=== PATIENT | female | born 1955 | race Caucasian/White ===

== ENCOUNTER → 2016-10-29 | Outpatient (CLI) | payer OTHER ==
[~2016-10-29] MED LIST: ATEN-60 PO; EST0625T PO; ESZO3TAB53 PO; FLUO-125 PO; LEVO75TA6 PO; LOR05T PO; OLA5T PO; SIMV-13 PO
[2016-10-29 09:18] LABS: Basophils # (auto) 0.1 uL; Basophils % (auto) 0.8 % (0.0-2.0); Eosinophils # (auto) 0.2 uL; Eosinophils % (auto) 2.8 % (0.0-7.0); Hematocrit 40.7 % (36.0-46.0); Hemoglobin 12.8 g/dL (12.2-16.2); Lymphocytes # (auto) 2.6 uL; Lymphocytes % (auto) 37.4 % (10.0-50.0); Mean Corpuscular Hemoglobin 27.2 pg (28.0-32.0); Mean Corpuscular Hgb Conc. 31.5 g/dL (32.0-36.0); Mean Corpuscular Volume 86.3 fL (80.0-100.0); Mean Platelet Volume 8.5 fL (7.4-10.4); Monocytes # (auto) 0.5 uL; Monocytes % (auto) 6.8 % (0.0-12.0); Neutrophils # (auto) 3.7 uL; Neutrophils % (auto) 52.2 % (37.0-80.0); Platelet Count (auto) 280 10^3/uL (140-450); Red Cell Distribution Width 14.6 % (11.6-16.0); White Blood Cell 7.1 10^3/uL (4.4-10.8)
[2016-10-29 09:36] LABS: Urine Bilirubin Negative (Negative); Urine Blood Negative /uL (Negative); Urine Color Yellow (Yellow); Urine Glucose Normal (Normal); Urine Ketone Negative (Negative); Urine Nitrite Negative (Negative); Urine RBC 4 /hpf (0 - 4); Urine Squamous Epithelial Cell MANY /hpf (<5); Urine Urobilinogen Normal (Negative); Urine pH 6.5 (5.0-8.0)
[2016-10-29 09:38] LABS: Albumin 3.7 g/dL (3.4-5.0); BUN/Creatinine Ratio 16.5; Bilirubin, Total 0.3 mg/dL (0.2-1.0); Calcium 9.2 mg/dL (8.5-10.1); Potassium 4.4 mmol/L (3.5-5.1); Total Protein 7.9 g/dL (6.4-8.2)
== END | disposition home or self-care (01) ==
LOC: LAB 08:39
PROVIDERS: ATTEND Internal Medicine
DX: E78.00 Pure hypercholesterolemia, unspecified (principal); N18.3 Chronic kidney disease, stage 3 (moderate); E11.9 Type 2 diabetes mellitus without complications; Z00.00 Encounter for general adult medical examination without abnormal findings
CPT/HCPCS: 36415; 80053; 80061; 81001; 83615; 84439; 84443; 84480; 84481; 85025

== ENCOUNTER → 2016-11-06 | Outpatient (CLI) | payer OTHER | END | disposition home or self-care (01) | LOC: LAB 15:27 | PROVIDERS: ATTEND Internal Medicine | DX: E11.40 Type 2 diabetes mellitus with diabetic neuropathy, unspecified (principal); N18.3 Chronic kidney disease, stage 3 (moderate); E78.00 Pure hypercholesterolemia, unspecified | CPT/HCPCS: 82270 ==

== ENCOUNTER → 2017-05-07 | Outpatient (CLI) | payer OTHER | END | disposition home or self-care (01) | LOC: LAB 08:03 | PROVIDERS: ATTEND Internal Medicine | DX: E03.9 Hypothyroidism, unspecified (principal); G45.9 Transient cerebral ischemic attack, unspecified; Z90.710 Acquired absence of both cervix and uterus | CPT/HCPCS: 36415; 83036; 84439; 84443 ==

== ENCOUNTER → 2017-11-27 | Outpatient (CLI) | payer OTHER ==
[~2017-11-27] MED LIST changes: -LOR05T PO; +LORA-654 PO
[2017-11-27 11:16] LABS: Basophils # (auto) 0.2 uL; Basophils % (auto) 2.4 % (0.0-2.0); Eosinophils # (auto) 0.2 uL; Eosinophils % (auto) 2.8 % (0.0-7.0); Hematocrit 40.5 % (36.0-46.0); Hemoglobin 13.6 g/dL (12.2-16.2); Mean Corpuscular Hemoglobin 30.2 pg (28.0-32.0); Mean Corpuscular Hgb Conc. 33.7 g/dL (32.0-36.0); Mean Corpuscular Volume 89.5 fL (80.0-100.0); Monocytes # (auto) 0.4 uL; Monocytes % (auto) 6.1 % (0.0-12.0); Neutrophils # (auto) 2.7 uL; Neutrophils % (auto) 42.7 % (37.0-80.0); Nucleated Red Blood Cells % 0.2 %; Platelet Count (auto) 228 10^3/uL (140-450); Red Blood Cells 4.52 10^6/uL (4.0-5.20); Red Cell Distribution Width 13.7 % (11.8-14.3); White Blood Cell 6.4 10^3/uL (4.4-10.8)
[2017-11-27 11:46] LABS: Albumin 3.7 g/dL (3.4-5.0); Bilirubin, Total 0.4 mg/dL (0.2-1.0); Potassium 4.2 mmol/L (3.5-5.1); Total Protein 7.6 g/dL (6.4-8.2)
[2017-11-27 14:25] LABS: Urine Bacteria MANY /hpf (None Seen); Urine Blood Negative /uL (Negative); Urine Specific Gravity 1.008 (1.001-1.035); Urine WBC 14 /hpf (0 - 5)
== END | disposition home or self-care (01) ==
LOC: LAB 10:59
PROVIDERS: ATTEND Family Medicine
DX: I10 Essential (primary) hypertension (principal); E03.9 Hypothyroidism, unspecified
CPT/HCPCS: 36415; 80053; 80061; 81001; 82306; 84443; 85025

== ENCOUNTER → 2018-05-19 | Outpatient (CLI) | payer OTHER ==
[2018-05-19 08:58] LABS: Urine Blood Negative /uL (Negative); Urine Specific Gravity 1.006 (1.001-1.035)
[2018-05-19 09:30] LABS: Albumin 3.9 g/dL (3.4-5.0); BUN/Creatinine Ratio 13.8; Bilirubin, Total 0.5 mg/dL (0.2-1.0); Potassium 3.7 mmol/L (3.5-5.1); Total Protein 7.7 g/dL (6.4-8.2)
[2018-05-19 11:21] LABS: Folate (Folic Acid) 16.07 ng/mL (5.38-24)
== END | disposition home or self-care (01) ==
LOC: LAB 08:16
PROVIDERS: ATTEND Nurse Practitioner
DX: E11.22 Type 2 diabetes mellitus with diabetic chronic kidney disease (principal); N18.3 Chronic kidney disease, stage 3 (moderate); E78.5 Hyperlipidemia, unspecified
CPT/HCPCS: 36415; 80053; 80061; 81003; 82306; 82607; 82746; 83036; 84443

== ENCOUNTER → 2018-05-22 | Outpatient (CLI) | payer OTHER | END | disposition home or self-care (01) | LOC: XY 09:17 | PROVIDERS: ATTEND Family Medicine | DX: I65.22 Occlusion and stenosis of left carotid artery (principal); E03.9 Hypothyroidism, unspecified; I12.9 Hypertensive chronic kidney disease with stage 1 through stage 4 chronic kidney disease, or unspecified chronic kidney disease; E11.22 Type 2 diabetes mellitus with diabetic chronic kidney disease; N18.3 Chronic kidney disease, stage 3 (moderate); E78.5 Hyperlipidemia, unspecified | CPT/HCPCS: 93886 ==

== ENCOUNTER 2019-07-08 12:21 | Inpatient (IN) | payer OTHER ==
[~2019-07-08] VITALS: Ht 157.5 cm; Wt 68.0 kg
[~2019-07-08 12:21] MED LIST changes: -LORA-654 PO; +LORA0.5T12 PO
[2019-07-08 13:24] LABS: Basophils # (auto) 0.1 uL; Basophils % (auto) 1.5 % (0.0-2.0); Eosinophils # (auto) 0.2 uL; Eosinophils % (auto) 2.6 % (0.0-7.0); Hematocrit 40.1 % (36.0-46.0); Hemoglobin 13.8 g/dL (12.2-16.2); Lymphocytes # (auto) 2.4 uL; Lymphocytes % (auto) 36.4 % (10.0-50.0); Mean Corpuscular Hemoglobin 31.6 pg (28.0-32.0); Mean Corpuscular Hgb Conc. 34.3 g/dL (32.0-36.0); Monocytes # (auto) 0.5 uL; Neutrophils # (auto) 3.4 uL; Neutrophils % (auto) 51.5 % (37.0-80.0); Platelet Count (auto) 213 10^3/uL (140-450); Red Blood Cells 4.36 10^6/uL (4.0-5.20); White Blood Cell 6.6 10^3/uL (4.4-10.8)
[2019-07-08 13:44] LABS: Albumin 3.9 g/dL (3.4-5.0); Anion Gap 8 (5-15); Blood Urea Nitrogen 14 mg/dL (7-18); Carbon Dioxide 27 mmol/L (21-32); Chloride 102 mmol/L (98-107); Glucose 96 mg/dL (74-106); Potassium 4.2 mmol/L (3.5-5.1); Sodium 137 mmol/L (136-145)
[2019-07-08 13:47] LABS: Alanine Aminotransferase 30 U/L (13-56); Aspartate Aminotransferase 23 U/L (15-37); BUN/Creatinine Ratio 16.3; GFR African American 86 mL/min; GFR Non-African American 71 mL/min
[2019-07-08 13:50] LABS: Alkaline Phosphatase 58 U/L (45-117); Bilirubin, Total 0.1 mg/dL (0.2-1.0); Total Protein 7.8 g/dL (6.4-8.2)
[2019-07-08] MEDS ORDERED: ACETAMINOPHEN 325 MG TAB PO PRN (21:00)
[2019-07-08] MEDS ORDERED: ONDANSETRON HCL 4 MG/2 ML VIAL IV PRN (21:00)
[2019-07-08] MEDS ORDERED: NITROGLYCERIN 0.4 MG SL TAB SL PRN (22:00)
[2019-07-08] MEDS ORDERED: MORPHINE SULF INJ 2 MG/ML SYRINGE 1ML IV PRN (22:00)
[2019-07-08] MEDS: FAMOTIDINE 20 MG TAB PO SCH (22:06)
[2019-07-08] MEDS: ATORVASTATIN 20 MG TAB PO SCH (22:06)
[2019-07-08] MEDS: OLANZapine 5 MG TAB PO SCH (22:07)
[2019-07-08 23:00] VITALS: BP 127/72
--- NOTE | 2019-07-08 23:05 | NUR ---
Telemetry admit from [facility] admitted to Telemetry unit after SBAR received. Patient oriented to Christine aquino RN, unit, room, bed, and unit policies regarding patient care and visiting hours. Patient now on continuous telemetry monitoring, tele box #[id number] and telemetry reading on arrival to unit is SINUS RHYTHM. Patient weighed by bed scale and encouraged to call if they need something. All questions and concerns addressed, patient verbalized understanding.
--- NOTE | 2019-07-09 00:02 | NUR ---
PAGED HOSPITALIST RE: PATIENT REQUESTS SLEEPING PILL, NO ORDER AT THIS TIME ALSO, PATIENT HAS NO DIET ORDER WILL WAIT FOR CALL BACK
--- NOTE | 2019-07-09 00:11 | NUR ---
D DIMER SPOKE WITH LAB PERSONNEL MICHAEL RE: STAT D DIMER THAT HAS NOT BEEN DRAWN PER MICHAEL, A SUPPLY SERVICE WORKER IS ON THEIR WAY NOW
[2019-07-09] MEDS ORDERED: TEMAZEPAM 15 MG CAP PO ONE ×2 (01:45→20:45)
--- NOTE | 2019-07-09 01:45 | NUR ---
new orders received from hospitalist Hoda orders read back and verified. dEwar carry out orders
[2019-07-09 03:14] VITALS: BP 127/72
[2019-07-09 05:09] VITALS: BP 138/74
[2019-07-09] MEDS: LEVOTHYROXINE SODIUM 25 MCG TAB PO SCH (06:27)
--- NOTE | 2019-07-09 06:59 | NUR ---
CLOSING PATIENT IS SLEEPING. NO S/S OF DISTRESS NOTED. NO C/O CHEST PAIN THROUGHOUT SHIFT. CALL LIGHT WITHIN REACH. WILL ENDORSE CARE TO AM SHIFT RN.
--- NOTE | 2019-07-09 07:30 | NUR ---
Opening Shift Note Assumed care of patient, awake and alert. No S/S of distress/SOB. PT denies having any pain at this time. Bed in lowest and locked position with side rails up x2 and call light with in reach. Instructed on POC and to call for assist PRN, will continue to monitor for changes Q1hr and PRN.
[2019-07-09 07:46] LABS: Calcium 8.9 mg/dL (8.5-10.1); Potassium 4.3 mmol/L (3.5-5.1)
[2019-07-09 07:48] LABS: BUN/Creatinine Ratio 13.4
[2019-07-09 09:23] VITALS: BP 157/86
[2019-07-09] MEDS: ASPirin 81 mg TAB PO SCH (10:15)
[2019-07-09] MEDS: FAMOTIDINE 20 MG TAB PO SCH ×2 (10:15→21:41)
[2019-07-09] MEDS: FLUoxetine HCL 20 MG CAP PO SCH (10:16)
[2019-07-09] MEDS: ATENOLOL 50 MG TAB PO SCH (10:17)
[2019-07-09 13:00] VITALS: BP 119/77
--- NOTE | 2019-07-09 13:49 | NUR ---
PAGED DR. STEINER REGARDING CARDIOLOGY CONSULT.
--- NOTE | 2019-07-09 13:51 | NUR ---
RECEIVED CALL BACK FROM DR. STEINER. NEW ORDERS RECEIVED, READ BACK AND VERIFIED.
--- NOTE | 2019-07-09 13:56 | NUR ---
SPOKE TO STRESS LAB. ACCORDING TO STRESS TOP STITCHER, THE PT WILL HAVE THE STRESS TEST IN THE AM AND THE PT IS TO BE NPO AFTER MIDNIGHT.
[2019-07-09 17:00] VITALS: BP 127/64
--- NOTE | 2019-07-09 19:00 | NUR ---
Opening Shift Note Assumed care of patient, awake and alert. No S/S of distress/SOB or pain. Instructed on POC and to call for assist PRN, will continue to monitor for changes Q1hr and PRN.
[2019-07-09 21:15] VITALS: BP 129/79
[2019-07-09] MEDS: ATORVASTATIN 20 MG TAB PO SCH (21:41)
[2019-07-09] MEDS: OLANZapine 5 MG TAB PO SCH (21:41)
[2019-07-10 05:43] VITALS: BP 153/97
--- NOTE | 2019-07-10 06:12 | NUR ---
Attempted IV: RN attempted to place another IV d/t patient scheduled to have a stress test today. Patient politely refused and informed RN "we can do that later, not now". RN provided teaching to patient for requirement of IV. Patient verbalized understanding.
[2019-07-10] MEDS: LEVOTHYROXINE SODIUM 25 MCG TAB PO SCH (06:32)
[2019-07-10 06:53] LABS: Cholesterol 154 mg/dL (< 200); Triglycerides 136 mg/dL (< 150)
[2019-07-10 06:55] LABS: HDL Cholesterol 58 mg/dL (40-59); LDL Cholesterol 79 mg/dL (< 100)
--- NOTE | 2019-07-10 07:39 | NUR ---
Opening Shift Note Assumed care of patient, AOx4. No signs/symptoms of distress/SOB or pain. Patient has left FA 20 gauge saline locked peripheral IV. Patient is NPO for stress test. Bed in lowest position wit 2/4 side rails up. Instructed on POC and to call for assist PRN, will continue to monitor for changes Q1hr and PRN.
[2019-07-10] MEDS ORDERED: ADENOSINE 57 MG in GIVE UN-DILUTED 0 ML IV STA (08:17)
--- NOTE | 2019-07-10 08:30 | NUR ---
Patient off unit Patient off unit via wheelchair to stress test. Respirations even and unlabored, no signs or symptoms of distress.
[2019-07-10 09:00] VITALS: BP 125/76
[2019-07-10] MEDS: ASPirin 81 mg TAB PO SCH (10:31)
[2019-07-10] MEDS: FAMOTIDINE 20 MG TAB PO SCH (10:33)
[2019-07-10] MEDS: ATENOLOL 50 MG TAB PO SCH (10:33)
[2019-07-10] MEDS: FLUoxetine HCL 20 MG CAP PO SCH (10:33)
[2019-07-10 13:00] VITALS: BP 132/89
--- NOTE | 2019-07-10 15:02 | NUR ---
RE: Stress test; spoke with MD Spoke with Dr. Hussein RE: stress test results and active discharge order pending stress test results. MD verbalized understanding. Results of stress test not available.
--- NOTE | 2019-07-10 16:06 | NUR ---
Patient resting in bed with even and unlabored respirations, no distress noted. Visitor at bedside.
[2019-07-10] MEDS ORDERED: LORA0.5T12 PO (17:06)
[2019-07-10] MEDS ORDERED: LORA1TAB12 PO (17:06)
[2019-07-10 17:08] VITALS: BP 126/81
--- NOTE | 2019-07-10 17:38 | NUR ---
Patient cleared by cardiology Dr. Hussein notified this RN via telephone that the patient is clear for discharge. Will process discharge per MD order.
--- NOTE | 2019-07-10 18:17 | NUR ---
Discharge Discharge education and paperwork provided to the patient per MD order. Instructed patient on scheduled follow up appointment and provided patient with information to Dr. Hussein's office. Patient verbalized understanding to all information. IV removed with clean technique, catheter intact. Dressing applied. Patient tolerated well, no trauma to site. Telemonitor removed and returned to telemonitor tech. Patient collected all personal belongings. Patient refused wheelchair. Respirations even and unlabored, no distress noted. Patient denies CP. Patient ambulated with a steady gait to a private vehicle with patient's family member at her side.
== END 2019-07-10 18:15 | disposition home or self-care (01) | DRG 313 ==
LOC: ER 12:26 → TELE 12:27 → TELE-WESTW 23:13
PROVIDERS: ADMIT Nurse Practitioner; ATTEND Internal Medicine
DX: R07.89 Other chest pain (principal); I70.0 Atherosclerosis of aorta; E78.5 Hyperlipidemia, unspecified; F41.9 Anxiety disorder, unspecified; E05.90 Thyrotoxicosis, unspecified without thyrotoxic crisis or storm; F32.9 Major depressive disorder, single episode, unspecified; E03.9 Hypothyroidism, unspecified; I10 Essential (primary) hypertension; Z90.710 Acquired absence of both cervix and uterus; Z85.850 Personal history of malignant neoplasm of thyroid; Z82.49 Family history of ischemic heart disease and other diseases of the circulatory system; Z79.899 Other long term (current) drug therapy
CPT/HCPCS: 36415; 71046; 78452; 80048; 80053; 80061; 84443; 84484; 85025; 85379; 93005; 93017; 93306; G0378; J0153

== ENCOUNTER → 2019-10-06 | Outpatient (CLI) | payer OTHER ==
[~2019-10-06] MED LIST changes: -LORA0.5T12 PO; +LORA1TAB12 PO
== END | disposition home or self-care (01) ==
LOC: LAB 15:00
PROVIDERS: ATTEND Physician Assistant
DX: L98.6 Other infiltrative disorders of the skin and subcutaneous tissue (principal)
CPT/HCPCS: 81479

== ENCOUNTER → 2020-03-01 | Outpatient (CLI) | payer OTHER ==
[~2020-03-01] MED LIST changes: -LORA1TAB12 PO; +LORA1TAB23 PO
[2020-03-01 08:24] LABS: Basophils # (auto) 0.1 10 ^3/uL (0-0.2); Basophils % (auto) 1.3 % (0.0-2.0); Eosinophils # (auto) 0.2 10 ^3/uL (0-0.8); Eosinophils % (auto) 3.3 % (0.0-7.0); Hematocrit 42.9 % (36.0-46.0); Hemoglobin 14.5 g/dL (12.2-16.2); Mean Corpuscular Hemoglobin 30.1 pg (28.0-32.0); Mean Corpuscular Hgb Conc. 33.7 g/dL (32.0-36.0); Mean Corpuscular Volume 89.4 fL (80.0-100.0); Monocytes # (auto) 0.5 10 ^3/uL (0-1.3); Monocytes % (auto) 6.6 % (0.0-12.0); Neutrophils # (auto) 3.2 10 ^3/uL (1.6-8.6); Neutrophils % (auto) 45.8 % (37.0-80.0); Nucleated Red Blood Cells % 0.1 %; Platelet Count (auto) 227 10^3/uL (140-450); Red Cell Distribution Width 13.1 % (11.8-14.3); White Blood Cell 6.9 10^3/uL (4.4-10.8)
[2020-03-01 09:40] LABS: Potassium 3.8 mmol/L (3.5-5.1)
[2020-03-01 09:50] LABS: Albumin 3.8 g/dL (3.4-5.0); BUN/Creatinine Ratio 13.6; Bilirubin, Total 0.4 mg/dL (0.2-1.0); Calcium 8.9 mg/dL (8.5-10.1); Total Protein 7.5 g/dL (6.4-8.2)
== END | disposition home or self-care (01) ==
LOC: LAB 07:46
PROVIDERS: ATTEND Internal Medicine
DX: E78.5 Hyperlipidemia, unspecified (principal); E03.9 Hypothyroidism, unspecified; I10 Essential (primary) hypertension
CPT/HCPCS: 36415; 80053; 80061; 84443; 85025; 86431

== ENCOUNTER 2020-05-25 12:20 | Day surgery (SDC) | payer OTHER ==
[2020-05-19 09:06] LABS: Basophils # (auto) 0.1 10 ^3/uL (0-0.2); Basophils % (auto) 0.9 % (0.0-2.0); Eosinophils # (auto) 0.3 10 ^3/uL (0-0.8); Eosinophils % (auto) 3.7 % (0.0-7.0); Hematocrit 40.2 % (36.0-46.0); Hemoglobin 13.7 g/dL (12.2-16.2); Lymphocytes # (auto) 3.2 10 ^3/uL (0.4-5.4); Lymphocytes % (auto) 38.5 % (10.0-50.0); Mean Corpuscular Hemoglobin 30.8 pg (28.0-32.0); Mean Corpuscular Volume 90.4 fL (80.0-100.0); Monocytes # (auto) 0.9 10 ^3/uL (0-1.3); Monocytes % (auto) 10.4 % (0.0-12.0); Neutrophils # (auto) 3.8 10 ^3/uL (1.6-8.6); Neutrophils % (auto) 46.5 % (37.0-80.0); Platelet Count (auto) 209 10^3/uL (140-450); Red Blood Cells 4.44 10^6/uL (4.0-5.20); Red Cell Distribution Width 13.2 % (11.8-14.3); White Blood Cell 8.3 10^3/uL (4.4-10.8)
[2020-05-19 09:29] LABS: INR 0.97 (0.9-1.15)
[~2020-05-25] VITALS: Ht 157.5 cm; Wt 67.6 kg
[~2020-05-25 12:20] MED LIST changes: -ESZO3TAB53 PO
[2020-05-25] MEDS ORDERED: SODIUM CHLORIDE LOCK 10 ML ONE (13:19)
[2020-05-25] MEDS: MIDAZOLAM HCL 5 MG/ML-1ML VIAL ONE ×3 (13:37→13:44)
[2020-05-25] MEDS: fentaNYL CITRATE 100 MCG/2 ML VL ONE ×2 (13:37→13:41)
[2020-05-25] MEDS: diphenhdrAMINE HCL 50 MG/1 ML VL ONE ×2 (13:46→13:51)
[2020-05-25 14:12] VITALS: BP 121/72
== END 2020-05-25 14:30 | disposition home or self-care (01) ==
LOC: SUR 12:20
PROVIDERS: ATTEND Internal Medicine Gastroenterology
DX: Z12.11 Encounter for screening for malignant neoplasm of colon (principal); D12.5 Benign neoplasm of sigmoid colon; K57.90 Diverticulosis of intestine, part unspecified, without perforation or abscess without bleeding; M62.89 Other specified disorders of muscle; K64.8 Other hemorrhoids; Z90.710 Acquired absence of both cervix and uterus; Z79.899 Other long term (current) drug therapy; Z98.890 Other specified postprocedural states; Z20.828 Contact with and (suspected) exposure to other viral communicable diseases
CPT/HCPCS: 36415; 45385; 85025; 85610; 85730; 88305; J1200; J2250; J3010; J7030; U0003; 99152

== ENCOUNTER → 2020-06-10 | Outpatient (CLI) | payer OTHER | END | disposition home or self-care (01) | LOC: LAB 08:05 | PROVIDERS: ATTEND Internal Medicine | DX: E03.9 Hypothyroidism, unspecified (principal) | CPT/HCPCS: 36415; 84443 ==

== ENCOUNTER → 2020-12-19 | Outpatient (CLI) | payer OTHER | END | disposition home or self-care (01) | LOC: LAB 07:32 | PROVIDERS: ATTEND Internal Medicine | DX: E03.9 Hypothyroidism, unspecified (principal) | CPT/HCPCS: 36415; 84443 ==

== ENCOUNTER → 2021-01-09 | Outpatient (CLI) | payer OTHER | END | disposition home or self-care (01) | LOC: LAB 09:41 | PROVIDERS: ATTEND Internal Medicine Gastroenterology | DX: R19.7 Diarrhea, unspecified (principal) | CPT/HCPCS: 82270; 85048; 87177; 87493 ==

== ENCOUNTER → 2021-03-28 | Outpatient (CLI) | payer OTHER ==
[2021-03-28 11:24] LABS: Potassium 3.6 mmol/L (3.5-5.1)
[2021-03-28 11:32] LABS: Albumin 3.9 g/dL (3.4-5.0); Bilirubin, Total 0.4 mg/dL (0.2-1.0); Calcium 9.3 mg/dL (8.5-10.1); Total Protein 7.7 g/dL (6.4-8.2)
== END | disposition home or self-care (01) ==
LOC: LAB 09:54
PROVIDERS: ATTEND Internal Medicine
DX: I10 Essential (primary) hypertension (principal); E78.5 Hyperlipidemia, unspecified; E55.9 Vitamin D deficiency, unspecified; R73.03 Prediabetes
CPT/HCPCS: 36415; 80053; 80061; 82043; 82306; 83036; 84443

== ENCOUNTER → 2021-06-30 | Outpatient (CLI) | payer OTHER ==
[2021-06-30 14:42] LABS: Albumin 3.7 g/dL (3.4-5.0); BUN/Creatinine Ratio 11.6; Calcium 9.4 mg/dL (8.5-10.1); Potassium 3.9 mmol/L (3.5-5.1)
[2021-06-30 14:43] LABS: Bilirubin, Total 0.3 mg/dL (0.2-1.0); Total Protein 7.6 g/dL (6.4-8.2)
== END | disposition home or self-care (01) ==
LOC: LAB 14:01
PROVIDERS: ATTEND Internal Medicine
DX: R10.11 Right upper quadrant pain (principal)
CPT/HCPCS: 36415; 80053; 82150; 83690

== ENCOUNTER → 2021-12-26 | Outpatient (CLI) | payer OTHER | END | disposition home or self-care (01) | LOC: LAB 09:08 | PROVIDERS: ATTEND Internal Medicine | DX: Z12.11 Encounter for screening for malignant neoplasm of colon (principal); E11.9 Type 2 diabetes mellitus without complications; Z00.00 Encounter for general adult medical examination without abnormal findings | CPT/HCPCS: 36415; 82043; 83036 ==

== ENCOUNTER → 2022-05-01 | Outpatient (CLI) | payer OTHER ==
[2022-05-01 07:36] LABS: Cholesterol 158 mg/dL (< 200); HDL Cholesterol 63 mg/dL (40-59); LDL Cholesterol 86 mg/dL (< 100); Triglycerides 151 mg/dL (< 150)
== END | disposition home or self-care (01) ==
LOC: LAB 06:42
PROVIDERS: ATTEND Internal Medicine
DX: E78.5 Hyperlipidemia, unspecified (principal)
CPT/HCPCS: 36415; 80061

== ENCOUNTER → 2022-09-05 | Outpatient (CLI) | payer OTHER | END | disposition home or self-care (01) | LOC: LAB 10:34 | PROVIDERS: ATTEND Internal Medicine | DX: E03.9 Hypothyroidism, unspecified (principal) | CPT/HCPCS: 36415; 84443 ==

== ENCOUNTER → 2022-10-17 | Outpatient (CLI) | payer OTHER ==
[~2022-10-17] MED LIST changes: +BUPIVACAINE HCL 0.25% P/F 10 ML VIAL ONE; +IOHEXOL 300 MG/ML 100ML BOTTLE IJ ONE; +methylPREDNISolone ACETATE 80 MG/ML VL ONE
== END | disposition home or self-care (01) ==
LOC: XYW 09:46
PROVIDERS: ATTEND Orthopaedic Surgery Adult Reconstructive Orthopaedic Surgery
DX: M25.511 Pain in right shoulder (principal); M75.01 Adhesive capsulitis of right shoulder
CPT/HCPCS: 20610; 73020; 76000; J1040; J3490; Q9967

== ENCOUNTER → 2022-12-05 | Outpatient (CLI) | payer OTHER ==
[~2022-12-05] MED LIST changes: -BUPIVACAINE HCL 0.25% P/F 10 ML VIAL ONE; -IOHEXOL 300 MG/ML 100ML BOTTLE IJ ONE; -methylPREDNISolone ACETATE 80 MG/ML VL ONE
[2022-12-05 11:05] LABS: Basophils # (auto) 0.1 10 ^3/uL (0-0.2); Basophils % (auto) 1.5 % (0.0-2.0); Eosinophils # (auto) 0.2 10 ^3/uL (0-0.8); Eosinophils % (auto) 3.7 % (0.0-7.0); Hematocrit 37.5 % (36.0-46.0); Hemoglobin 12.7 g/dL (12.2-16.2); Lymphocytes # (auto) 2.8 10 ^3/uL (0.4-5.4); Mean Corpuscular Hemoglobin 30.7 pg (28.0-32.0); Mean Corpuscular Hgb Conc. 33.8 g/dL (32.0-36.0); Mean Corpuscular Volume 90.7 fL (80.0-100.0); Monocytes # (auto) 0.5 10 ^3/uL (0-1.3); Monocytes % (auto) 9.6 % (0.0-12.0); Neutrophils # (auto) 1.5 10 ^3/uL (1.6-8.6); Neutrophils % (auto) 29.7 % (37.0-80.0); Nucleated Red Blood Cells % 0.1 %; Red Blood Cells 4.13 10^6/uL (4.0-5.20); Red Cell Distribution Width 12.9 % (11.8-14.3); White Blood Cell 5.1 10^3/uL (4.4-10.8)
[2022-12-05 11:24] LABS: Lymphocytes % (auto) 55.5 % (10.0-50.0)
[2022-12-05 11:32] LABS: Urine Bacteria FEW /hpf (None Seen); Urine Blood Negative /uL (Negative); Urine Specific Gravity 1.009 (1.001-1.035); Urine WBC 1 /hpf (0 - 5)
[2022-12-05 11:51] LABS: Albumin 3.5 g/dL (3.4-5.0); Calcium 8.8 mg/dL (8.5-10.1); Potassium 3.7 mmol/L (3.5-5.1)
[2022-12-05 11:55] LABS: Bilirubin, Total 0.5 mg/dL (0.2-1.0); Total Protein 7.3 g/dL (6.4-8.2)
== END | disposition home or self-care (01) ==
LOC: LAB 10:51
PROVIDERS: ATTEND Internal Medicine
DX: I10 Essential (primary) hypertension (principal); E78.5 Hyperlipidemia, unspecified; E03.9 Hypothyroidism, unspecified
CPT/HCPCS: 36415; 80053; 81001; 82043; 83036; 85025

== ENCOUNTER → 2023-03-28 | Outpatient (CLI) | payer OTHER ==
[~2023-03-28] MED LIST changes: +LORA-1123 PO; -LORA1TAB23 PO; -SIMV-13 PO; +SIMV40TA18 PO
[2023-03-28 14:29] LABS: CRP High Sensitivity 0.34 mg/dL (< 0.3); Uric Acid 7.8 mg/dL (2.6-6.0)
== END | disposition home or self-care (01) ==
LOC: LAB 06:21
PROVIDERS: ATTEND Internal Medicine
DX: E03.9 Hypothyroidism, unspecified (principal); E78.5 Hyperlipidemia, unspecified; M25.512 Pain in left shoulder
CPT/HCPCS: 36415; 80061; 84443; 84550; 85652; 86141

== ENCOUNTER → 2023-06-05 | Outpatient (CLI) | payer OTHER ==
[~2023-06-05] MED LIST changes: +BUPIVACAINE HCL 0.25% P/F 10 ML VIAL ONE; +IOHEXOL 300 MG/ML 100ML BOTTLE IJ ONE; +LIDOCAINE 2%HCL (LOCAL ANESTH.) INJ 10ml MDV ONE; +methylPREDNISolone ACETATE 80 MG/ML VL ONE
== END | disposition home or self-care (01) ==
LOC: XYW 12:52
PROVIDERS: ATTEND Orthopaedic Surgery Adult Reconstructive Orthopaedic Surgery
DX: M75.01 Adhesive capsulitis of right shoulder (principal)
CPT/HCPCS: 20610; 73020; 76000; J1040; J2001; J3490; Q9967

== ENCOUNTER → 2023-07-04 | Outpatient (CLI) | payer OTHER ==
[~2023-07-04] MED LIST changes: -BUPIVACAINE HCL 0.25% P/F 10 ML VIAL ONE; -IOHEXOL 300 MG/ML 100ML BOTTLE IJ ONE; -LIDOCAINE 2%HCL (LOCAL ANESTH.) INJ 10ml MDV ONE; -methylPREDNISolone ACETATE 80 MG/ML VL ONE
== END | disposition home or self-care (01) ==
LOC: LAB 14:04
PROVIDERS: ATTEND Internal Medicine
DX: M10.9 Gout, unspecified (principal)
CPT/HCPCS: 36415; 84550

== ENCOUNTER → 2023-08-19 | Outpatient (CLI) | payer OTHER ==
[2023-08-19 19:35] LABS: Folate (Folic Acid) 21.94 ng/mL (>5.38)
[2023-08-20 10:07] LABS: RPR Non Reactive (Non Reactive)
[2023-08-20 13:07] LABS: Anti-Nuclear Antibody Direct Negative (Negative)
== END | disposition home or self-care (01) ==
LOC: LAB 07:35
PROVIDERS: ATTEND Internal Medicine
DX: E79.0 Hyperuricemia without signs of inflammatory arthritis and tophaceous disease (principal); R41.3 Other amnesia
CPT/HCPCS: 36415; 82607; 82746; 84443; 86038; 86592

== ENCOUNTER 2023-09-03 09:21 | Day surgery (SDC) | payer OTHER ==
[2023-08-30 09:05] LABS: Basophils # (auto) 0.1 10 ^3/uL (0-0.2); Basophils % (auto) 1.8 % (0.0-2.0); Eosinophils # (auto) 0.3 10 ^3/uL (0-0.8); Eosinophils % (auto) 4.3 % (0.0-7.0); Hematocrit 40.4 % (36.0-46.0); Hemoglobin 13.7 g/dL (12.2-16.2); Lymphocytes % (auto) 31.9 % (10.0-50.0); Mean Corpuscular Hemoglobin 31.7 pg (28.0-32.0); Mean Corpuscular Hgb Conc. 33.8 g/dL (32.0-36.0); Mean Corpuscular Volume 93.8 fL (80.0-100.0); Monocytes # (auto) 0.5 10 ^3/uL (0-1.3); Neutrophils # (auto) 3.4 10 ^3/uL (1.6-8.6); Nucleated Red Blood Cells % 0.1 %; Red Cell Distribution Width 13.5 % (11.8-14.3); White Blood Cell 6.3 10^3/uL (4.4-10.8)
[2023-08-30 09:11] LABS: INR 0.99 (0.9-1.15); Partial Thromboplastin Time 26.1 SEC (24.5-34.5); Prothrombin Time 10.4 sec (9.3-11.8)
[2023-08-30 09:42] LABS: Alanine Aminotransferase 28 U/L (7-40); Albumin 4.8 g/dL (3.2-4.8); Alkaline Phosphatase 65 U/L (46-116); Anion Gap 9 (5-15); Aspartate Aminotransferase 33 U/L (13-40); Blood Urea Nitrogen 10 mg/dL (9-23); Calcium 10.1 mg/dL (8.5-10.1); Carbon Dioxide 29 mmol/L (20-30); Chloride 100 mmol/L (98-107); Glucose 95 mg/dL (74-106); Sodium 138 mmol/L (136-145)
[2023-08-30 09:43] LABS: Bilirubin, Total 0.4 mg/dL (0.2-1.0); Total Protein 7.4 g/dL (5.7-8.2)
[~2023-09-03] VITALS: Ht 160 cm; Wt 64.9 kg
[~2023-09-03 09:21] MED LIST changes: +FLUMAZENIL 0.1 MG/ML INJ 10ML MDV IV ONE; -LEVO75TA6 PO; +LEVO88CA3 PO; -LORA-1123 PO; +NALOXONE HCL 0.4 MG/ML VIAL ONE; +PANT40T PO; +SODIUM CHLORIDE LOCK 10 ML ONE; +TRIAPOW43 XX
[2023-09-03] MEDS: MIDAZOLAM HCL 5 MG/ML-1ML VIAL ONE ×3 (10:30→10:37)
[2023-09-03] MEDS: fentaNYL CITRATE 100 MCG/2 ML VL ONE ×2 (10:30→10:34)
[2023-09-03] MEDS: diphenhdrAMINE HCL 50 MG/1 ML VL ONE ×2 (10:30→10:31)
[2023-09-03 10:49] VITALS: TEMP 97; O2SAT 96
[2023-09-03 11:19] VITALS: BP 103/54; PULSE 56; RESP 21; O2SAT 96
== END 2023-09-03 11:29 | disposition home or self-care (01) ==
LOC: GI 09:21
PROVIDERS: ATTEND Internal Medicine Gastroenterology
DX: Z12.11 Encounter for screening for malignant neoplasm of colon (principal); K57.30 Diverticulosis of large intestine without perforation or abscess without bleeding; K63.89 Other specified diseases of intestine; K63.5 Polyp of colon; K64.0 First degree hemorrhoids; Z86.010 Personal history of colon polyps; K55.20 Angiodysplasia of colon without hemorrhage
CPT/HCPCS: 36415; 45385; 80053; 85025; 85610; 85730; 88305; J1200; J2250; J3010; J7030; 99152

== ENCOUNTER → 2023-09-10 | Outpatient (CLI) | payer OTHER ==
[~2023-09-10] MED LIST changes: -FLUMAZENIL 0.1 MG/ML INJ 10ML MDV IV ONE; -NALOXONE HCL 0.4 MG/ML VIAL ONE; -SODIUM CHLORIDE LOCK 10 ML ONE
== END | disposition home or self-care (01) ==
LOC: LAB 12:53
PROVIDERS: ATTEND Internal Medicine
DX: E11.9 Type 2 diabetes mellitus without complications (principal)
CPT/HCPCS: 36415; 83036

== ENCOUNTER → 2023-09-11 | Outpatient (CLI) | payer OTHER ==
[~2023-09-11] MED LIST changes: +BUPIVACAINE HCL 0.25% P/F 10 ML VIAL ONE; +IOHEXOL 300 MG/ML 100ML BOTTLE IJ ONE; +LIDOCAINE 2%HCL (LOCAL ANESTH.) INJ 10ml MDV ONE; +methylPREDNISolone ACETATE 80 MG/ML VL ONE
== END | disposition home or self-care (01) ==
LOC: XYW 09:48
PROVIDERS: ATTEND Orthopaedic Surgery Adult Reconstructive Orthopaedic Surgery
DX: M75.01 Adhesive capsulitis of right shoulder (principal); M25.551 Pain in right hip
CPT/HCPCS: 20610; 73020; 77002; J1040; J2001; J3490; Q9967

== ENCOUNTER → 2023-11-25 | Outpatient (CLI) | payer OTHER ==
[~2023-11-25] MED LIST changes: -BUPIVACAINE HCL 0.25% P/F 10 ML VIAL ONE; -IOHEXOL 300 MG/ML 100ML BOTTLE IJ ONE; -LIDOCAINE 2%HCL (LOCAL ANESTH.) INJ 10ml MDV ONE; -methylPREDNISolone ACETATE 80 MG/ML VL ONE
== END | disposition home or self-care (01) ==
LOC: LAB 07:37
PROVIDERS: ATTEND Internal Medicine
DX: E03.9 Hypothyroidism, unspecified (principal); E79.0 Hyperuricemia without signs of inflammatory arthritis and tophaceous disease
CPT/HCPCS: 36415; 82306; 84443; 84550

== ENCOUNTER → 2023-11-26 | Outpatient (CLI) | payer OTHER ==
[~2023-11-26] MED LIST changes: +BUPIVACAINE HCL 0.25% P/F 10 ML VIAL ONE; +LIDOCAINE 2%HCL (LOCAL ANESTH.) INJ 10ml MDV ONE; +methylPREDNISolone ACETATE 80 MG/ML VL ONE
== END | disposition home or self-care (01) ==
LOC: XYW 11:20
PROVIDERS: ATTEND Orthopaedic Surgery Adult Reconstructive Orthopaedic Surgery
DX: M75.01 Adhesive capsulitis of right shoulder (principal); G89.29 Other chronic pain; I20.9 Angina pectoris, unspecified; F41.8 Other specified anxiety disorders; Z79.899 Other long term (current) drug therapy; Z90.710 Acquired absence of both cervix and uterus; Z85.42 Personal history of malignant neoplasm of other parts of uterus; Z98.890 Other specified postprocedural states; Z82.3 Family history of stroke; Z82.49 Family history of ischemic heart disease and other diseases of the circulatory system; Z83.3 Family history of diabetes mellitus; Z82.0 Family history of epilepsy and other diseases of the nervous system
CPT/HCPCS: 20610; 73020; 77002; J1040; J2001; J3490

== ENCOUNTER → 2024-06-30 | Outpatient (CLI) | payer OTHER ==
[~2024-06-30] MED LIST changes: -BUPIVACAINE HCL 0.25% P/F 10 ML VIAL ONE; -LIDOCAINE 2%HCL (LOCAL ANESTH.) INJ 10ml MDV ONE; -methylPREDNISolone ACETATE 80 MG/ML VL ONE
[2024-06-30 07:37] LABS: Triglycerides 127 mg/dL (< 150)
[2024-06-30 07:38] LABS: Cholesterol 158 mg/dL (< 200); LDL Cholesterol 87 mg/dL (< 100)
[2024-06-30 07:39] LABS: HDL Cholesterol 57 mg/dL (40-59)
== END | disposition home or self-care (01) ==
LOC: LAB 06:50
PROVIDERS: ATTEND Internal Medicine
DX: Z12.11 Encounter for screening for malignant neoplasm of colon (principal); R73.03 Prediabetes
CPT/HCPCS: 36415; 80061; 83036

== ENCOUNTER → 2024-07-21 | Outpatient (CLI) | payer OTHER ==
[~2024-07-21] MED LIST changes: +ASPI-498 OR; +CEPH500C PO; +HYDR1TAB97 PO; -OLA5T PO; +TRANEXAMIC ACID 20 ML ONE
[2024-07-21 15:59] LABS: Alanine Aminotransferase 30 U/L (7-40); Albumin 4.4 g/dL (3.2-4.8); Alkaline Phosphatase 61 U/L (46-116); Anion Gap 7 (5-15); Aspartate Aminotransferase 29 U/L (13-40); BUN/Creatinine Ratio 10.1 (10.0-20.0); Blood Urea Nitrogen 9 mg/dL (9-23); Carbon Dioxide 27 mmol/L (20-31); Chloride 94 mmol/L (98-107); Glucose 147 mg/dL (74-106); Potassium 3.5 mmol/L (3.5-5.1); Sodium 128 mmol/L (136-145)
[2024-07-21 16:00] LABS: Bilirubin, Total 0.5 mg/dL (0.2-1.0); Total Protein 7.1 g/dL (5.7-8.2)
--- NOTE | 2024-07-22 13:36 | DVH ---
C-ARM FLUOROSCOPY: PROCEDURE: right total shoulder arthroplasty. FLUOROSCOPY TIME: refer to operative report
--- NOTE | 2024-07-22 13:36 | DVH ---
C-ARM FLUOROSCOPY: PROCEDURE: right total shoulder arthroplasty. FLUOROSCOPY TIME: refer to operative report
== END | disposition home or self-care (01) ==
LOC: LAB 14:56
PROVIDERS: ATTEND Orthopaedic Surgery Sports Medicine
DX: Z01.812 Encounter for preprocedural laboratory examination (principal)
CPT/HCPCS: 36415; 80053

== ENCOUNTER 2024-07-22 06:24 | Day surgery (SDC) | payer OTHER ==
[2024-07-03 10:30] LABS: Basophils # (auto) 0.1 10 ^3/uL (0-0.2); Basophils % (auto) 1.7 % (0.0-2.0); Eosinophils # (auto) 0.1 10 ^3/uL (0-0.8); Eosinophils % (auto) 2.3 % (0.0-7.0); Hematocrit 36.6 % (36.0-46.0); Hemoglobin 12.8 g/dL (12.2-16.2); Lymphocytes # (auto) 1.7 10 ^3/uL (0.4-5.4); Lymphocytes % (auto) 32.2 % (10.0-50.0); Mean Corpuscular Hemoglobin 32.3 pg (28.0-32.0); Mean Corpuscular Volume 92.3 fL (80.0-100.0); Monocytes # (auto) 0.5 10 ^3/uL (0-1.3); Monocytes % (auto) 9.2 % (0.0-12.0); Neutrophils # (auto) 2.8 10 ^3/uL (1.6-8.6); Neutrophils % (auto) 54.6 % (37.0-80.0); Platelet Count (auto) 243 10^3/uL (140-450); Red Blood Cells 3.97 10^6/uL (4.0-5.20); Red Cell Distribution Width 13.3 % (11.8-14.3); White Blood Cell 5.2 10^3/uL (4.4-10.8)
[2024-07-03 10:44] LABS: Urine Bacteria FEW /hpf (None Seen); Urine Blood Negative /uL (Negative); Urine Clarity Clear (Clear); Urine Color Colorless (Yellow); Urine Protein, UAD Negative (Negative); Urine Specific Gravity 1.007 (1.001-1.035); Urine Urobilinogen Normal (Negative); Urine WBC 1 /hpf (0 - 5)
[2024-07-03 10:46] LABS: INR 1.03 (0.9-1.15); Partial Thromboplastin Time 25.3 SEC (24.5-34.5); Prothrombin Time 10.9 sec (9.3-11.8)
[2024-07-03 10:58] LABS: Alanine Aminotransferase 26 U/L (7-40); Albumin 4.7 g/dL (3.2-4.8); Alkaline Phosphatase 55 U/L (46-116); Anion Gap 6 (5-15); Aspartate Aminotransferase 28 U/L (13-40); BUN/Creatinine Ratio 14.1 (10.0-20.0); Bilirubin, Total 0.5 mg/dL (0.2-1.0); Blood Urea Nitrogen 11 mg/dL (9-23); Carbon Dioxide 29 mmol/L (20-31); Chloride 98 mmol/L (98-107); Glucose 103 mg/dL (74-106); Potassium 3.5 mmol/L (3.5-5.1); Sodium 133 mmol/L (136-145); Total Protein 7.2 g/dL (5.7-8.2)
[2024-07-17 10:06] LABS: Urine Bacteria None Seen /hpf (None Seen); Urine WBC None Seen /hpf (0 - 5)
[2024-07-17 10:27] LABS: Basophils # (auto) 0.1 10 ^3/uL (0-0.2); Basophils % (auto) 1.1 % (0.0-2.0); Eosinophils # (auto) 0.2 10 ^3/uL (0-0.8); Eosinophils % (auto) 3.1 % (0.0-7.0); Hematocrit 37.5 % (36.0-46.0); Hemoglobin 13.2 g/dL (12.2-16.2); Lymphocytes # (auto) 1.8 10 ^3/uL (0.4-5.4); Lymphocytes % (auto) 34.7 % (10.0-50.0); Mean Corpuscular Hemoglobin 31.7 pg (28.0-32.0); Mean Corpuscular Hgb Conc. 35.1 g/dL (32.0-36.0); Mean Corpuscular Volume 90.4 fL (80.0-100.0); Monocytes # (auto) 0.5 10 ^3/uL (0-1.3); Neutrophils # (auto) 2.7 10 ^3/uL (1.6-8.6); Neutrophils % (auto) 51.1 % (37.0-80.0); Nucleated Red Blood Cells % 0.1 %; Platelet Count (auto) 227 10^3/uL (140-450); Red Blood Cells 4.15 10^6/uL (4.0-5.20); Red Cell Distribution Width 13.6 % (11.8-14.3); White Blood Cell 5.3 10^3/uL (4.4-10.8)
[2024-07-17 10:41] LABS: Urine Blood Negative /uL (Negative); Urine Clarity Clear (Clear); Urine Color Colorless (Yellow); Urine Protein, UAD Negative (Negative); Urine Specific Gravity 1.004 (1.001-1.035); Urine Urobilinogen Normal (Negative)
[2024-07-17 10:51] LABS: INR 0.99 (0.9-1.15); Partial Thromboplastin Time 25.7 SEC (24.5-34.5); Prothrombin Time 10.5 sec (9.3-11.8)
[2024-07-17 11:33] LABS: Alanine Aminotransferase 26 U/L (7-40); Albumin 4.7 g/dL (3.2-4.8); Alkaline Phosphatase 60 U/L (46-116); Anion Gap 3 (5-15); Aspartate Aminotransferase 25 U/L (13-40); BUN/Creatinine Ratio 11.8 (10.0-20.0); Bilirubin, Total 0.4 mg/dL (0.2-1.0); Blood Urea Nitrogen 9 mg/dL (9-23); Calcium 10.1 mg/dL (8.7-10.4); Carbon Dioxide 29 mmol/L (20-31); Chloride 96 mmol/L (98-107); Glucose 83 mg/dL (74-106); Potassium 3.5 mmol/L (3.5-5.1); Sodium 128 mmol/L (136-145); Total Protein 7.3 g/dL (5.7-8.2)
[~2024-07-22] VITALS: Ht 157.5 cm; Wt 61.2 kg
[~2024-07-22 06:24] MED LIST changes: -ASPI-498 OR; -CEPH500C PO; -HYDR1TAB97 PO; -TRANEXAMIC ACID 20 ML ONE
[2024-07-22] MEDS ORDERED: MIDAZOLAM HCL 2MG/2ML 2ml VIAL (1mg/ml) ONE (07:36)
[2024-07-22] MEDS ORDERED: ONDANSETRON HCL 4 MG/2 ML VIAL ONE (07:36)
[2024-07-22] MEDS ORDERED: KETAMINE 50mg/ML 1ml syringe ONE (07:36)
[2024-07-22] MEDS ORDERED: PROPOFOL 10 MG/ML 20 ML IV ONE (07:36)
[2024-07-22] MEDS ORDERED: fentaNYL CITRATE 100 MCG/2 ML VL ONE (07:36)
[2024-07-22] MEDS ORDERED: MEPERIDINE HCL (50 MG/ML) 1 ML VIAL ONE (07:36)
[2024-07-22] MEDS ORDERED: LIDOCAINE HCL 2% TOP JELLY 5ML TOP ONE (07:36)
[2024-07-22] MEDS ORDERED: SODIUM CHLORIDE LOCK 50 ML ONE (07:36)
[2024-07-22] MEDS ORDERED: LIDOCAINE 1% INJ PF 5ML AMP ONE (07:36)
[2024-07-22] MEDS ORDERED: ROCURONIUM 10MG/ML 10ML VIAL IV ONE (07:36)
[2024-07-22] MEDS ORDERED: METOCLOPRAMIDE HCL 5MG/ml INJ 2ml VIAL IV ONE (08:00)
[2024-07-22] MEDS ORDERED: MORPHINE SULFATE INJ 2 MG/ml SYRG IV PRN (08:00)
[2024-07-22] MEDS ORDERED: HYDROmorphone HCL 2 MG/ML VL/or syr IV PRN ×2 (08:00)
[2024-07-22] MEDS ORDERED: HYDR1TAB97 PO (08:02)
[2024-07-22] MEDS ORDERED: ASPI-498 OR (08:09)
[2024-07-22] MEDS ORDERED: CEPH500C PO (08:09)
[2024-07-22] MEDS: ceFAZolin 2 GM/D5W100ml 100 ML IV ONE (08:15)
[2024-07-22] MEDS: CLINDAMYCIN 600MG IV 50 ML IV ONE (08:40)
[2024-07-22 11:07] VITALS: TEMP 97.8; O2SAT 100
--- NOTE | 2024-07-22 11:33 | DVHOP2 ---
Operative Report - 2 Report Details Date: 07/22/24 Preop Diagnosis: Right shoulder glenohumeral arthritis Postop Diagnosis: Right shoulder glenohumeral arthritis Surgeon: Nickolas Ramirez MD Medical Coding Instructor: Miya Mills, Physician Medical Coding Instructor Anesthesiologist: Dr Leone Anesthesia: General, Regional Implant: Fx shoulder solutions, stemless humeral implant, 43 mm head, small glenoid component, Jermain iconix anchor x2 Consent: The patient was informed of the risks and benefits of the procedure. These include but are not limited to complications of anesthesia, postoperative infection, incomplete relief of symptoms, recurrence of symptoms, damage to bloo d vessels, nerves and tendons, deep venous thrombosis, pulmonary embolism and possible need for repeat surgery in the future. Complications: None Estimated Blood Loss: Less than 100 mL Indications for Surgery: The patient is a 69-year-old female who presented to the clinic with a history of shoulder pain. Clinical and radiological evaluation demonstrated significant osteoarthritis, especially on MRI. Nonoperative and operative management options were discussed. The rotator cuff was intact. Glenoid was type A with minimal retroversion. Anatomic versus reverse shoulder replacement was discussed with the patient and anatomic was considered to be a better option given her physiologically younger age, activity level and intact rotator cuff. Benefits, risks and treatment alternatives were discussed. Specific complications of the surgery such as neurovascular injury, infection, dislocation, arthrofibrosis, loss of limb or life were discussed. The patient decided to proceed with the surgical option. Name of Procedure Performed Right anatomic shoulder replacement with biceps tenodesis Procedure Details Procedure Details: The patient was identified in the preoperative holding area, and the surgical site was marked. The consent was verified. He was brought into the operating room and placed supine on the operating table. General anesthesia was administered. Intravenous antibiotics were given. The extremity was prepped and draped in the usual sterile manner. A time-out was called out to confirm the identity of the patient, the nature of surgery, the site of surgery, the availability of implants, and x-rays and allergies to medications. The patient was in a beachchair position. Intraoperative x-rays were obtained before prepping and draping as well to ens ure the position of the C-arm machine. A standard deltopectoral approach was used. The skin and the subcutaneous tissue were dissected. Cephalic vein was identified and retracted laterally. The conjoined tendon was identified and was retracted medially. The CA ligament was identified and released. The subscapularis tendon was now identified. This was noted to be intact. A tenotomy technique was used to release the subscapularis. The anterior circumflex vessels were cauterized with the help of a special cautery. Next, the arm was externally rotated and the humeral head was dislocated and exposed. Appropriate retractors were inserted for adequate exposure. The pectoralis major tendon was released approximately 1 cm. The biceps tendon was identified and was released as well to perform a tenodesis later on. The rotator cuff tendons were identified and were found to be intact. These were firmly attached to the greater tuberosity footprint. Next, a humeral head cut was made. This was 135-degree with an intramedullary guide with 20 retroversion. Next a saw was used to make the humeral cut. This was an anatomical cut. The inferior osteophytes were initially removed to ensure that the cut is appropriate. After making the cut, the rotator cuff tendons were inspected once again and were found to be attached. A humeral head protector was inserted on top of it. Next, glenoid was exposed. Anterior and posterior retractors were inserted. One superior retractor was inserted as well. The biceps tendon was followed to the superior labrum and this was marked to orient the axis. Next, the anterior and the posterior labrum were released. The subscapularis was mobilized with the help of Lutz scissors inferiorly as well as superiorly and posteriorly. This was along with the anterior capsule. Next, inferior labrum was gradually released off the inferior glenoid as well. Care was taken to insert a retractor on the inferior margin to protect the axillary nerve. Next, the nerve was palpated at the beginning of the case and throughout the case to ensure its position and safety. The anterior and inferior capsules were released on the humeral neck as well for better visualization. Next, the superior to inferior axis was marked. The center of the glenoid was marked. This was now templated and was found to have a small sized glenoid. The guide was inserted. Next, the reamer was inserted to remove 2 to 3 mm of subchondral bone. This was done very gradually so as to not remove excess bone. The glenoid version was approximately 3-4 degrees retroversion as per preoperative planning. Next, the template was inserted once again and the 2 pegs were drilled. Next, thorough irrigation was given with pulse lavage. Cement was mixed on the back table. This was now inserted into the holes and around the pegs. The final implant was opened up and inserted into the holes and held together with the help of a pressure device. Excellent stability was noted. Excess cement was removed. Excellent fixation of the glenoid was noted. I proceeded to place the humeral stemless implant. A Sizer disc was placed on the humeral surface and a guide pin was inserted. The quality of the metaphysis was excellent with thumb test negative. The guide pin was inserted into the center and was considered to be very secure. A central Reamer was used to plane out the metaphysis. Next the broach with tines for the stemless implant was inserted and good bone quality was noted. The humerus size was 43. The rotator cuff was found to be still intact with no damage. The final humeral head was opened up along with the stemless attachment. The attachment was now tapped into the humeral stem for excellent fixation and final humeral head was tapped on top of it for excellent fixation as well. As seen during the trial and after final implantation, around 50% subluxation with posterior pressure was noted. With the subscapularis tendon tension, the stability was excellent. Overall good version and inclination was noted. C-arm images were obtained throughout the procedure, after the humeral head cut, after the glenoid implantation, and after the final prosthesis for ensuring alignment. Thorough irrigation was given throughout the procedure and also after the procedure. The subscapularis now was tied in a sequential manner. 2 all suture anchors were used on the lesser tuberosity lateral side and 2 Ethibond sutures were used medially. A modified Alessandro-Corey stitch was used for the two all suture anchors. Excellent quality of the tissue and fixation was noted. The arm was kept in 20 of external rotation. The supraspinatus tendon was once again identified. This was intact. The anterior most portion was incorporated in the repair with the subscapularis. Care was taken to palpate the axillary nerve for the inferior-most suture and it was safely away from our suture. Thorough irrigation was given. Vancomycin powder was applied. The deltopectoral interval was closed with Ethibond stitches. Minimal bleeding was noted. The wound was closed with layers of 0 Vicryl, 2-0 Vicryl along with carol ann. A sterile dressing was applied. The arm was placed in a shoulder immobilizer with abduction attachment. Condition Good Disposition Home NICKOLAS RAMIREZ MD Jul 22, 2024 11:33
[2024-07-22 13:18] LABS: Alanine Aminotransferase 25 U/L (7-40); Albumin 3.4 g/dL (3.2-4.8); Alkaline Phosphatase 49 U/L (46-116); Anion Gap 4 (5-15); Aspartate Aminotransferase 30 U/L (13-40); BUN/Creatinine Ratio 8.8 (10.0-20.0); Blood Urea Nitrogen 6 mg/dL (9-23); Calcium 8.1 mg/dL (8.7-10.4); Carbon Dioxide 25 mmol/L (20-31); Chloride 105 mmol/L (98-107); Glucose 98 mg/dL (74-106); Potassium 3.9 mmol/L (3.5-5.1)
[2024-07-22 13:19] LABS: Bilirubin, Total 0.3 mg/dL (0.2-1.0); Total Protein 5.5 g/dL (5.7-8.2)
[2024-07-22 13:22] VITALS: BP 139/77; PULSE 61; RESP 22; O2SAT 94
[2024-07-22 13:26] LABS: Sodium 134 mmol/L (136-145)
== END 2024-07-22 13:40 | disposition home or self-care (01) ==
LOC: SUR 06:24
PROVIDERS: ATTEND Orthopaedic Surgery Sports Medicine
DX: M19.011 Primary osteoarthritis, right shoulder (principal); I10 Essential (primary) hypertension; E03.9 Hypothyroidism, unspecified; E78.5 Hyperlipidemia, unspecified; K21.9 Gastro-esophageal reflux disease without esophagitis; Z79.890 Hormone replacement therapy; Z79.899 Other long term (current) drug therapy; Z90.710 Acquired absence of both cervix and uterus; Z86.73 Personal history of transient ischemic attack (TIA), and cerebral infarction without residual deficits; Z88.8 Allergy status to other drugs, medicaments and biological substances
CPT/HCPCS: 23472; 36415; 80053; 81001; 85025; 85610; 85730; 86850; 86900; 86901; C1713; C1776; J2175; J2250; J2405; J2704; J3010; J3490; 73030; 76000; A4565

== ENCOUNTER → 2024-11-02 | Outpatient (CLI) | payer MEDICAID ==
[~2024-11-02] MED LIST changes: +ASPI-498 OR; +CEPH500C PO; +HYDR1TAB97 PO
== END | disposition home or self-care (01) ==
LOC: LAB 08:03
PROVIDERS: ATTEND Internal Medicine
DX: Z12.11 Encounter for screening for malignant neoplasm of colon (principal); E11.40 Type 2 diabetes mellitus with diabetic neuropathy, unspecified; E78.5 Hyperlipidemia, unspecified; E03.9 Hypothyroidism, unspecified
CPT/HCPCS: 82306; 82607

== ENCOUNTER → 2024-11-09 | Outpatient (CLI) | payer MEDICAID | END | disposition home or self-care (01) | LOC: LAB 11:47 | PROVIDERS: ATTEND Internal Medicine | DX: Z12.11 Encounter for screening for malignant neoplasm of colon (principal); E11.40 Type 2 diabetes mellitus with diabetic neuropathy, unspecified; E78.5 Hyperlipidemia, unspecified | CPT/HCPCS: 82270 ==

== ENCOUNTER 2024-12-28 06:23 | Inpatient (IN) | payer MEDICAID ==
[2024-12-24 11:09] LABS: Basophils # (auto) 0.1 10 ^3/uL (0-0.2); Basophils % (auto) 1.3 % (0.0-2.0); Eosinophils # (auto) 0.2 10 ^3/uL (0-0.8); Eosinophils % (auto) 2.9 % (0.0-7.0); Hematocrit 41.5 % (36.0-46.0); Hemoglobin 14.1 g/dL (12.2-16.2); Lymphocytes # (auto) 2.4 10 ^3/uL (0.4-5.4); Lymphocytes % (auto) 38.2 % (10.0-50.0); Mean Corpuscular Hemoglobin 31.1 pg (28.0-32.0); Mean Corpuscular Hgb Conc. 34.1 g/dL (32.0-36.0); Mean Corpuscular Volume 91.4 fL (80.0-100.0); Monocytes # (auto) 0.5 10 ^3/uL (0-1.3); Monocytes % (auto) 8.2 % (0.0-12.0); Neutrophils # (auto) 3.1 10 ^3/uL (1.6-8.6); Neutrophils % (auto) 49.4 % (37.0-80.0); Nucleated Red Blood Cells % 0.1 %; Platelet Count (auto) 283 10^3/uL (140-450); Red Blood Cells 4.54 10^6/uL (4.0-5.20); Red Cell Distribution Width 13.8 % (11.8-14.3); White Blood Cell 6.2 10^3/uL (4.4-10.8)
[2024-12-24 11:21] LABS: Urine Bacteria FEW /hpf (None Seen); Urine Blood Negative /uL (Negative); Urine Clarity Turbid (Clear); Urine Color Yellow (Yellow); Urine Hyaline Cast FEW /lpf (0 - 2); Urine Protein, UAD Negative (Negative); Urine Specific Gravity 1.014 (1.001-1.035); Urine Squamous Epithelial Cell MOD /hpf (<5); Urine Urobilinogen Normal (Negative); Urine WBC 4 /HPF (0-5); Urine pH 6.5 (5.0-9.0)
[2024-12-24 11:22] LABS: Partial Thromboplastin Time 26.3 SEC (24.5-34.5); Prothrombin Time 10.6 sec (9.3-11.8)
[2024-12-24 11:43] LABS: Alanine Aminotransferase 23 U/L (7-40); Alkaline Phosphatase 62 U/L (46-116); Anion Gap 7 (5-15); Aspartate Aminotransferase 22 U/L (13-40); BUN/Creatinine Ratio 11.4 (10.0-20.0); Bilirubin, Total 0.5 mg/dL (0.2-1.0); Blood Urea Nitrogen 10 mg/dL (9-23); Carbon Dioxide 29 mmol/L (20-31); Chloride 99 mmol/L (98-107); Glucose 88 mg/dL (74-106); Potassium 3.8 mmol/L (3.5-5.1); Total Protein 7.6 g/dL (5.7-8.2)
[2024-12-24 11:49] LABS: Albumin 4.9 g/dL (3.2-4.8); Calcium 10.6 mg/dL (8.7-10.4); Sodium 135 mmol/L (136-145)
[~2024-12-28] VITALS: Ht 160 cm; Wt 60.8 kg
[~2024-12-28 06:23] MED LIST changes: -ASPI-498 OR; -CEPH500C PO; +ESTR1TAB5 PO; -HYDR1TAB97 PO
[2024-12-28] MEDS ORDERED: ceFAZolin 2 GM/D5W100ml 100 ML IV ONE (06:35)
[2024-12-28] MEDS ORDERED: ceFAZolin 1GM VL ONE (06:37)
[2024-12-28] MEDS ORDERED: TRANEXAMIC ACID 20 ML ONE (06:37)
[2024-12-28] MEDS ORDERED: BUPIVACAINE W/ EPINEPH 0.5% INJ 50ML MDV IJ ONE (06:37)
[2024-12-28] MEDS ORDERED: VANCOMYCIN HCL 1000 MG VL ONE (06:38)
[2024-12-28] MEDS ORDERED: CLINDAMYCIN 600MG IV 50 ML IV ONE (06:39)
[2024-12-28] MEDS ORDERED: KETOROLAC TROMETH 30 MG/ML 1ML VIAL ONE (06:41)
[2024-12-28] MEDS ORDERED: MORPHINE SULF PF 5 MG/10 ML VIAL ONE (06:41)
[2024-12-28] MEDS ORDERED: SUCCINYLCHOLINE CHLORIDE 20 MG/ML 10ML VIAL IV ONE (06:56)
[2024-12-28] MEDS ORDERED: ROPIVACAINE 0.5% (5MG/ML) 20ML AMPULE IJ ONE (06:57)
[2024-12-28] MEDS ORDERED: fentaNYL CITRATE 100 MCG/2 ML VL ONE ×2 (07:00→09:52)
[2024-12-28] MEDS ORDERED: PROPOFOL 10 MG/ML 20 ML IV ONE (07:00)
[2024-12-28] MEDS ORDERED: EPINEPHrine HCL 1 MG/1 ML AMP ONE (07:03)
[2024-12-28] MEDS ORDERED: DexAMETHasone SOD PHOS 4 MG/1ML SDV INJ ONE (07:03)
[2024-12-28] MEDS ORDERED: BUPIVACAINE 0.25% INJ 50ML VIAL ONE (07:04)
[2024-12-28] MEDS ORDERED: BUPIVACAINE HCL 50 ML ONE (07:04)
[2024-12-28] MEDS ORDERED: LIDOCAINE 1% (LOCAL ANESTH.) PF 5ml SDV ONE (07:05)
[2024-12-28] MEDS ORDERED: ePHEDrine SULFATE 50 MG/ML AMP ONE (07:34)
[2024-12-28] MEDS ORDERED: DexAMETHasone SOD PHOS 10MG/1ML VIAL INJ ONE (09:48)
[2024-12-28] MEDS ORDERED: SUGAMMADEX 200mg/2ml Vial (100MG/ML) IV ONE (09:48)
[2024-12-28] MEDS ORDERED: ONDANSETRON HCL 4 MG/2 ML VIAL ONE (09:49)
[2024-12-28 10:17] VITALS: PULSE 127; RESP 12; TEMP 98.7; O2SAT 100
--- NOTE | 2024-12-28 10:27 | DVH ---
PROCEDURE: Right shoulder radiographs. INDICATION: RIGHT TOTAL SHOULDER TECHNIQUE: Multiple intraoperative fluoroscopic views of the right shoulder. COMPARISON: XY R SHOULDER 2+ VIEW XRAY on DOS: 07/22/24 FINDINGS: There is total shoulder replacement. Fluoroscopy time 5.5 seconds. Dose 0.23 mGy. IMPRESSION: 1. Intraoperative images as described.
[2024-12-28] MEDS ORDERED: ONDANSETRON HCL 4 MG/2 ML VIAL IV ONE (10:30)
[2024-12-28] MEDS ORDERED: ACETAMINOPHEN IV 1000 MG/100ML (10MG/ML) IV PRN (10:30)
[2024-12-28] MEDS ORDERED: MEPERIDINE HCL (25 MG/ML) 1ML VIAL IV PRN (10:30)
[2024-12-28] MEDS ORDERED: HYDROmorphone HCL 2 MG/ML VL/or syr IV PRN (10:30)
--- NOTE | 2024-12-28 10:36 | DVHOP2 ---
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 These include but are not limited to complications of anesthesia, postoperative infection, incomplete relief of symptoms, recurrence of symptoms, damage to blood vessels, nerves and tendons, deep venous thrombosis, pulmonary embolism and possible need for repeat surgery in the future. Estimated Blood Loss: 50 ml Indications for Surgery: The patient is a 69-year-old female who presented to the clinic with a history of shoulder instability status post anatomic total shoulder arthroplasty done 4 months ago. Clinical and radiological evaluation did confirm the diagnosis of failed subscapularis repair. Nonoperative and operative management options were discussed. Surgery in the form of repair of the subscapularis with possible allograft augmentation or conversion to reverse shoulder arthroplasty was discussed. Benefits, risks and treatment alternatives were discussed. Specific complications of the surgery such as neurovascular injury, infection, arthrofibrosis, loss of limb or life were discussed. The patient decided to proceed with the surgical option. Specific complications such as recurrent instability, infection, axillary nerve injury and musculocutaneous nerve injury was discussed. The patient decided to proceed with the surgical option. Name of Procedure Performed Right revision anatomic shoulder arthroplasty and conversion to reverse shoulder arthroplasty, change of both glenoid and humeral components. Procedure Details Procedure Details: The patient was identified in the preoperative holding area and the surgical site was marked. The consent was verified. The patient was brought into the operating room and placed supine on the operating table. General anesthesia was administered. The patient was brought into the beachchair position at 45 degrees angle. The extremity was prepped and draped in the usual sterile manner with Betadine and ChloraPrep. A timeout was called out to confirm the identity of the patient, the nature of surgery, the site of surgery, development of implants and x-rays and allergies to medications. All the bony prominences were appropriately padded Exposure: A standard deltopectoral approach was used. The previous incision was made from the superior portion of the coracoid to the upper arm lateral to the axillary line. The skin and the subcutaneous tissue were dissected. The deep fascia was incised. The deltopectoral interval was identified with the help of previous Ethibond sutures. Scar tissue was noted as expected. This was carefully dissected to identify various structures. The coracoid was identified and the conjoined tendon was also identified. The pectoralis tendon, approximately 1 cm was released. The biceps tendon was identified and tenodesis was carried out. This was sutured to the pectoralis major tendon with the help of FiberWire suture and was cut proximally. Ramos retractors were inserted. Adequate exposure was noted. The deltoid was released with the help of a Deleon elevator for better exposure. The subscapularis tendon was identified. The subscapularis tendon was attenuated and stretched out. No obvious failure of the attachment to the footprint was noted but in general stretching and poor quality tissue was noted. No undue implant prominence was noted as the anterior edge of the implant was flush against the humeral head cut. No signs of obvious infection was noted but multiple cultures were taken for aerobic and anaerobic. The humeral head component was noted. It was now exposed with external rotation and release of the inferior capsule. This was gently dislocated using a Darrach retractor. The humeral head was easily removed with the help of a fork tool. The stem was noted to be firmly implanted into the metaphysis. An impactor was attached to it and light taps were given to a certain that it was securely fixed. Glenoid exposure and implantation of glenoid prosthesis: A Darrach retractor was then inserted to retract the humeral head and expose the glenoid. Most of the labrum was already resected. Exposure was very good. Appropriate retractors were placed. A tug test was performed to confirm the position of the axillary nerve which was out of the surgical field. The inferior capsule was left intact and was released only with the help of a blunt elevator. The glenoid poly component was noted. This was removed uneventfully using a drill guide and then a corkscrew handle. No significant bone loss was noted. The central post was completely removed. Peripheral pegs had broken inside and attempt was not made to remove it to save as much bone as possible. Bone putty was mixed and the all holes were filled with that. Next a guide was inserted, a guidewire was inserted through the central portion. This was found to be in anatomic location, slightly inferior to the center. Next the central reamer was inserted. The glenoid was reamed, minimal cartilage was removed. Appropriate soft tissue resection was carried out. Minimal cartilage was removed to pr eserve the underlying bone. Next the baseplate was inserted with the help of an run boat operator. A central screw was used and inserted , excellent fixation was noted. It was rotated to align the screws in the appropriate directions. Next a drill guide was used to drill the hole for the screws. Locking and nonlocking screws were used for excellent compression and fixation. The glenosphere trial was now inserted. This was a 0 offset glenosphere. Next, a trial poly liner was inserted on top of the stemless FX [employer] implant. Next, a provisional soft tissue tensioning assessment was done with 3 mm trial liner. This was found to be adequate with 1 mm of shuck. The final glenosphere was opened up. This was tapped into position. Excellent fixation was noted. The central screw was also inserted and it was a certain that the glenosphere was firmly fixed on the base plate. X-rays were obtained as well. The joint was now trialed again with a 3 mm liner and was noticed to be slightly loose with a 2 mm Shuck. A final six mm retentive implant was opened up and inserted on the humeral stem. This was tapped and excellent fixation was noted. This was a 145 degree liner. Excellent stability and range of motion was noted, abduction of 120 and flexion up to 120 degrees. The shoulder did not dislocate with adduction, internal rotation and extension or with abduction and external rotation. Shuck test was acceptable with approximately 1 mm of gap with manual longitudinal traction. The fixation was tested with the help of a Amelia clamp. Excellent fixation was noted. Irrigation was given with bulb syringe lavage with bacitracin and normal saline, Betadine and vancomycin powder was applied as well. Irrisept irrigation was also used. All bony debris was also removed. C-arm was used throughout the procedure for evaluation of guidewire, baseplate and glenosphere position and finally humerus position and joint reduction. The deep tissue, skin and the subcutaneous tissue were closed with 0 Vicryl, 2-0 Vicryl and carol ann. Sterile dressing was applied. The patient was placed in a shoulder immobilizer. Condition Good Disposition Home DOMINICK RAMIREZ MD Dec 28, 2024 10:36
[2024-12-28 10:45] VITALS: RESP 17
[2024-12-28 11:10] VITALS: BP 125/68; PULSE 20; O2SAT 95
--- NOTE | 2024-12-28 11:19 | DVH ---
C-ARM FLUOROSCOPY: PROCEDURE: RIght total shoulder arthroplasty FLUOROSCOPY TIME: 5.5 sec DAP: 0.23 mgy FINDINGS: Spot intraoperative C arm radiographs demonstrating RIght total shoulder arthroplasty . IMPRESSION: Please refer to surgical report for detailed findings.
== END 2024-12-28 11:30 | disposition home or self-care (01) | DRG 483 ==
LOC: SUR 06:23 → OVERFLOW 06:24 → SUR 11:30
PROVIDERS: ADMIT Orthopaedic Surgery Sports Medicine; ATTEND Orthopaedic Surgery Sports Medicine
PROC: 0RRJ00Z Replacement of Right Shoulder Joint with Reverse Ball and Socket Synthetic Substitute, Open Approach (ICD-10-PCS; 2024-12-28)
PROC: 0RPJ0JZ Removal of Synthetic Substitute from Right Shoulder Joint, Open Approach (ICD-10-PCS; principal; 2024-12-28 07:22)
DX: T84.89XA Other specified complication of internal orthopedic prosthetic devices, implants and grafts, initial encounter (principal); M25.311 Other instability, right shoulder; E03.9 Hypothyroidism, unspecified; M10.9 Gout, unspecified; Z96.611 Presence of right artificial shoulder joint; F31.9 Bipolar disorder, unspecified; N39.3 Stress incontinence (female) (male); E78.00 Pure hypercholesterolemia, unspecified; Y83.8 Other surgical procedures as the cause of abnormal reaction of the patient, or of later complication, without mention of misadventure at the time of the procedure; Z79.899 Other long term (current) drug therapy; Z90.710 Acquired absence of both cervix and uterus; Z88.8 Allergy status to other drugs, medicaments and biological substances; Y92.89 Other specified places as the place of occurrence of the external cause
CPT/HCPCS: 36415; 73030; 76000; 80053; 81001; 85025; 85610; 85730; 86850; 86900; 86901; 87070; 87075; 87205; A4565; G0378; J0171; J0330; J0690; J1100; J1885; J2405; J2704; J3490

== ENCOUNTER 2025-05-03 07:02 | Outpatient (CLI) | payer MEDICAID ==
[2025-05-03 08:05] LABS: Cholesterol 167.0 mg/dL (< 200)
[2025-05-03 08:06] LABS: Triglycerides 133.0 mg/dL (< 150)
[2025-05-03 08:08] LABS: HDL Cholesterol 67.0 mg/dL (40-59)
[2025-05-03 08:42] LABS: Uric Acid 4.9 mg/dL (3.1-7.8)
== END 2025-05-03 17:00 | disposition home or self-care (01) ==
LOC: LAB 07:02
PROVIDERS: ATTEND Internal Medicine
DX: E78.5 Hyperlipidemia, unspecified (principal); M75.01 Adhesive capsulitis of right shoulder
CPT/HCPCS: 36415; 80061; 84443; 84550

== ENCOUNTER → 2025-08-03 | Outpatient (CLI) | payer MEDICAID | END | disposition home or self-care (01) | LOC: LAB 06:20 | PROVIDERS: ATTEND Internal Medicine | DX: E03.9 Hypothyroidism, unspecified (principal); M25.561 Pain in right knee; M25.551 Pain in right hip | CPT/HCPCS: 36415; 84443; 85652; 86141 ==